=== PATIENT | male | born 1995 | race Caucasian/White ===

== ENCOUNTER 2020-05-23 21:47 | Emergency (ER) | payer OTHER ==
[~2020-05-23] VITALS: Ht 160 cm; Wt 81.6 kg
[2020-05-23 21:50] VITALS: BP 152/102
[2020-05-24] MEDS ORDERED: KETOROLAC TROMETH 60MG/2ML VIAL IM ONE (01:00)
== END 2020-05-24 01:45 | disposition home or self-care (01) ==
LOC: ER 21:50
DX: R07.81 Pleurodynia (principal); R10.9 Unspecified abdominal pain; V49.9XXA Car occupant (driver) (passenger) injured in unspecified traffic accident, initial encounter; Y93.89 Activity, other specified; Y92.89 Other specified places as the place of occurrence of the external cause; Y99.8 Other external cause status
CPT/HCPCS: 70450; 71250; 72125; 74176; 96372; 99285; J1885

== ENCOUNTER 2020-05-28 23:39 | Emergency (ER) | payer MEDICAID, OTHER ==
[~2020-05-28] VITALS: Ht 167.6 cm; Wt 86.2 kg
[2020-05-29] MEDS ORDERED: ACETAMINOPHEN/CODEINE#3 (300/30mg) TAB PO ONE (03:30)
[2020-05-29] MEDS ORDERED: ONDANSETRON ODT 4 MG TAB PO ONE (03:30)
[2020-05-29 03:57] VITALS: BP 138/103
== END 2020-05-29 04:06 | disposition home or self-care (01) ==
LOC: ER 23:43
DX: S39.012A Strain of muscle, fascia and tendon of lower back, initial encounter (principal); S30.1XXA Contusion of abdominal wall, initial encounter; S30.0XXA Contusion of lower back and pelvis, initial encounter; R07.81 Pleurodynia; R04.0 Epistaxis; R51.9 Headache, unspecified; F17.210 Nicotine dependence, cigarettes, uncomplicated; Z88.1 Allergy status to other antibiotic agents; V49.9XXA Car occupant (driver) (passenger) injured in unspecified traffic accident, initial encounter; Y93.89 Activity, other specified; Y92.89 Other specified places as the place of occurrence of the external cause; Y99.8 Other external cause status
CPT/HCPCS: 70450; 71250; 72100; 74176; 99285; Q0162